=== PATIENT | female | born 1950 | race American Indian/Alaskan Native ===

== ENCOUNTER 2017-02-02 13:41 | Inpatient (IN) | payer MEDICARE, MEDICAID ==
[2017-02-02 13:56] VITALS: BMI 28.4
[2017-02-02] MEDS ORDERED: Sodium Chloride 0.9% 500 ML IV STA (14:00)
--- NOTE | 2017-02-02 14:06 | ED PDOC ---
Arrival/HPI - General Chief Complaint: Altered Mental Status Time Seen by Provider: 02/02/17 13:49 Historian: Patient - History of Present Illness Narrative History of Present Illness (Text): 02/02/17 14:05 A 66 year old female, whose past medical history includes diabetes, hypertension , CHF, COPD, CVA and ESRD with hemodialysis on //, sent into the emergency department from dialysis center for sudden onset of rigors and chills. Patients last complete dialysis treatment was 2 days ago on Tuesday. Patient was found to be hypotension in emergency room. She complains of a productive cough with yellow sputum for the past several days. Patient also notes dizziness and palpitations during dialysis, which has resolved now. Patient denies any fever, nausea, vomiting, abdominal pain, chest pain, shortness of breath or any other complaints. PMD: Dr. Caicedo Time/Duration: Prior to Arrival Symptom Course: Unchanged Quality: Other Context: Other Past Medical History - Provider Review Nursing Documentation Reviewed: Yes - Infectious Disease Hx of Infectious Diseases: None - Tetanus Immunization Tetanus Immunization: Unknown - Reproductive Menopause: No - Cardiac Hx Cardiac Disorders: Yes Hx Congestive Heart Failure: Yes Hx Hypertension: Yes Hx Pacemaker: No Hx Peripheral Edema: Yes Hx Peripheral Vascular Disease: Yes Other/Comment: b/l leg angiogram - Pulmonary Hx Respiratory Disorders: Yes Hx Chronic Obstructive Pulmonary Disease (COPD): Yes Hx Sleep Apnea: Yes Other/Comment: bipap at night - Neurological Hx Neurological Disorder: Yes (neuropathy) HX Cerebrovascular Accident: Yes Hx Dementia: Yes Other/Comment: no feeling in lle, left arm weakness, legally blind both eyes post cva 6 yrs ago - HEENT Hx HEENT Disorder: Yes Hx Blind: Yes (legally blind) - Renal Hx Renal Disorder: Yes Hx Dialysis: Yes ([facility] [place] ) Hx Renal Failure: Yes Other/Comment: left arm AV shunt - Endocrine/Metabolic Hx Endocrine Disorders: Yes Hx Diabetes Mellitus Type 1: Yes Hx Diabetes Mellitus Type 2: Yes - Hematological/Oncological Hx Blood Disorders: No - Integumentary Hx Dermatological Disorder: No - Musculoskeletal/Rheumatological Hx Musculoskeletal Disorders: No Hx Back Pain: Yes (fell in shop [id number]) Hx Falls: Yes Hx Unsteady Gait: Yes (walker) - Gastrointestinal Hx Gastrointestinal Disorders: Yes (CONSTIPATION, obese) Hx Gall Bladder Disease: Yes - Genitourinary/Gynecological Hx Genitourinary Disorders: Yes (ANURIA) - Psychiatric Hx Psychophysiologic Disorder: (SMOKE H/O) Hx Anxiety: No Hx Bipolar Disorder: No Hx Depression: No Hx Emotional Abuse: No Hx Hallucinations: No Hx Panic Disorder: No Hx Post Traumatic Stress Disorder: No Hx Psychosis: No Hx Physical Abuse: No Hx Schizophrenia: No Hx Sexual Abuse: No Hx Substance Use: No - Surgical History Hx Amputation: Yes (right pinky toe) Hx Cardiac Catheterization: Yes Hx Cholecystectomy: Yes Other/Comment: c section, r eye corneal sx - Anesthesia Hx Anesthesia: Yes Hx Anesthesia Reactions: No Hx Malignant Hyperthermia: No - Suicidal Assessment Feels Threatened In Home Enviroment: No Family/Social History - Physician Review Nursing Documentation Reviewed: Yes Family/Social History: Unknown Family HX Smoking Status: Former Smoker Hx Alcohol Use: No Hx Substance Use: No Hx Substance Use Treatment: No Allergies/Home Meds Allergies/Adverse Reactions: Allergies No Known Allergies Allergy (Verified 05/04/16 19:41) Home Medications: Home Meds Medication Instructions Recorded Confirmed Aspirin [Ecotrin] 81 mg PO DAILY 09/02/15 02/02/17 Atorvastatin [Lipitor] 10 mg PO DIN 09/02/15 02/02/17 Calcium Acetate [Phoslo] 667 mg PO TID 09/02/15 02/02/17 Famotidine [Pepcid] 20 mg PO DAILY 09/02/15 02/02/17 Gabapentin [Neurontin] 100 mg PO TID 09/02/15 02/02/17 Losartan Potassium 25 mg PO DAILY 09/02/15 02/02/17 Metoprolol Tartrate [Lopressor] 25 mg PO BID 09/02/15 02/02/17 Sevelamer [Renagel] 800 mg PO TID 09/02/15 02/02/17 cloNIDine [Catapres] 0.1 mg PO BID 09/02/15 02/02/17 Docusate Sodium [Bueno' 100 mg PO BID 05/04/16 02/02/17 Laxative] amLODIPine [Norvasc] 10 mg PO DAILY 05/04/16 02/02/17 Review of Systems - Physician Review All systems were reviewed & negative as marked: Yes - Review of Systems Constitutional: Night Sweats. absent: Fevers Respiratory: Cough, Sputum. absent: SOB Cardiovascular: Palpitations (resovled). absent: Chest Pain Gastrointestinal: absent: Abdominal Pain, Nausea, Vomiting Neurological: Dizziness (resolved) Physical Exam Vital Signs Reviewed: Yes Vital Signs Temp Pulse Resp BP Pulse Ox 02/02/17 22:04 98.9 F 84 18 138/67 96 02/02/17 19:45 85 18 125/76 96 02/02/17 16:06 99.9 F H 92 H 18 130/88 95 02/02/17 14:00 98.0 F 62 18 132/68 95 02/02/17 13:49 99.6 F 87 20 76/52 L 94 L Temperature: Afebrile Blood Pressure: Hypotensive Pulse: Regular Respiratory Rate: Normal Appearance: Positive for: Well-Appearing, Non-Toxic, Comfortable Pain Distress: None Mental Status: Positive for: Alert and Oriented X 3 - Systems Exam Head: Present: Atraumatic, Normocephalic Pupils: Present: PERRL Extroacular Muscles: Present: EOMI Conjunctiva: Present: Normal Mouth: Present: Moist Mucous Membranes Neck: Present: Normal Range of Motion Respiratory/Chest: Present: Good Air Exchange, Wheezes (Scattered expiratory wheezing, worse at bases more on right ), Rhonchi (Scattered rhonchi, worse at bases more on right ). No: Respiratory Distress, Accessory Muscle Use Cardiovascular: Present: Murmurs (systolic ejection murmur), Normal S1, S2 Abdomen: Present: Normal Bowel Sounds. No: Tenderness, Distention, Peritoneal Signs Back: Present: Normal Inspection Upper Extremity: Present: Normal ROM, NORMAL PULSES, Other (Left AV fistula with palpable thrill). No: Cyanosis, Edema Lower Extremity: Present: Edema (trace edema bilaterally), NORMAL PULSES, Normal ROM. No: CALF TENDERNESS Neurological: Present: GCS=15, CN II-XII Intact, Speech Normal Skin: Present: Warm, Dry, Normal Color. No: Rashes Psychiatric: Present: Alert, Oriented x 3, Normal Insight, Normal Concentration Medical Decision Making ED Course and Treatment: 02/02/17 14:05 Impression: A 66 year old female sent in from dialysis center for rigors and chills. Patient complains of a productive cough, and dizziness/palpitations which have resolved. Plan: -- Head CT -- Chest xray -- EKG -- Labs -- Blood and Urine culture -- Urinalysis -- IV fluids -- Reassess and disposition Progress Notes: Report Date : 02/02/2017 14:23:57 Procedure: Chest xray Dictator : Winston Moss MD IMPRESSION: Moderate vascular congestion Report Date : 02/02/2017 18:35:55 PROCEDURE: CT HEAD WITHOUT CONTRAST. Dictator : Mabel العلي MD IMPRESSION: No acute intracranial pathology identified. Extensive mucosal thickening and opacification of the ethmoid air cells and maxillary sinuses. Correlate clinically for chronic sinusitis. - Lab Interpretations Lab Results: 02/02/17 15:28 02/02/17 15:28 Lab Results 02/02/17 16:26: Lactic Acid 2.6 H 02/02/17 16:26: pO2 41, VBG pH 7.43, VBG pCO2 55.0, VBG HCO3 36.5 H, VBG Total CO2 38.2 H, VBG O2 Sat (Calc) 75.5 H, VBG Base Excess 10.1 H, VBG Potassium 5.5 H, Glucose 216 H, Lactate 2.8 H, FiO2 21.0, Sodium 137.0, Chloride 97.0 L, Venous Blood Potassium 5.5 H 02/02/17 16:26: PT 12.0, INR 1.10 H, APTT 33.6 02/02/17 16:26: Procalcitonin 0.92 H 02/02/17 15:28: Sodium 142, Potassium 4.1, Chloride 93 L, Carbon Dioxide 29, Anion Gap 24 H, BUN 19, Creatinine 4.8 H, Est GFR ( Amer) 11, Est GFR ( Non-Af Amer) 9, Random Glucose 142 H, Calcium 10.1, Phosphorus 2.5, Magnesium 2.0, Total Bilirubin 0.8, AST 51 H, ALT 40, Alkaline Phosphatase 114, Troponin I < 0.01, NT-Pro-B Natriuret Pep 9920 H, Total Protein 10.9 H, Albumin 4.7, Globulin 6.2, Albumin/Globulin Ratio 0.8 L 02/02/17 15:28: WBC 6.6 D, RBC 4.47, Hgb 13.0, Hct 40.6, MCV 90.8, MCH 29.1, MCHC 32.0, RDW 14.5, Plt Count 200, MPV 11.2 H, Gran % 59.8, Lymph % (Auto) 24.1 , [place] % (Auto) 11.5 H, Eos % (Auto) 4.3, Baso % (Auto) 0.3, Gran # 3.92, Lymph # 1.6, [place] # 0.8 H, Eos # 0.3, Baso # 0.02 I have reviewed the lab results: Yes - RAD Interpretation Radiology Orders: 02/02/17 13:59 CHEST PORTABLE [RAD] Stat 02/02/17 14:06 HEAD W/O CONTRAST [CT] Stat - Medication Orders Current Medication Orders: Discontinued Medications Sodium Chloride (Sodium Chloride 0.9%) 500 mls @ 999 mls/hr IV .Q31M STA Stop: 02/02/17 14:30 Last Admin: 02/02/17 14:15 Dose: 999 mls/hr eMAR Start Stop Document 02/02/17 14:15 KKL (Rec: 02/02/17 14:53 KKL [id number]) Intravenous Solution Start Date 02/02/17 Start Time 14:14 Vancomycin HCl (Vancomycin 1gm) 1 gm in 250 mls @ 167 mls/hr IVPB STAT STA PRN Reason: Protocol Stop: 02/02/17 15:56 Last Admin: 02/02/17 14:52 Dose: 167 mls/hr eMAR Start Stop Document 02/02/17 14:52 KKL (Rec: 02/02/17 14:52 KKL [id number]) Intravenous Solution Start Date 02/02/17 Start Time 14:52 Meropenem 1 gm/ Dextrose 100 mls @ 100 mls/hr IVPB STAT STA PRN Reason: Protocol Stop: 02/02/17 21:42 Last Admin: 02/02/17 21:10 Dose: 100 mls/hr eMAR Start Stop Document 02/02/17 21:10 IT (Rec: 02/02/17 21:11 IT [id number]) Intravenous Solution Start Date 02/02/17 Start Time 21:10 End Date 02/02/17 End time 22:10 Total Infusion Time 60 Metoprolol Tartrate (Lopressor) 2.5 mg IVP STAT STA Stop: 02/02/17 22:29 Last Admin: 02/02/17 23:08 Dose: Metoprolol Tartrate (Lopressor) 25 mg PO STAT STA Stop: 02/02/17 22:52 - Scribe Statement The provider has reviewed the documentation as recorded by the Scribjose Burton Provider Scribe Attestation: All medical record entries made by the Scribe were at my direction and personally dictated by me. I have reviewed the chart and agree that the record accurately reflects my personal performance of the history, physical exam, medical decision making, and the department course for this patient. I have also personally directed, reviewed, and agree with the discharge instructions and disposition. Disposition/Present on Arrival - Present on Arrival Any Indicators Present on Arrival: No History of DVT/PE: No History of Uncontrolled Diabetes: No Urinary Catheter: No History of Decub. Ulcer: No History Surgical Site Infection Following: None - Disposition Have Diagnosis and Disposition been Completed?: Yes Diagnosis: Hypotension Disposition: HOSPITALIZED Disposition Time: 23:13 Patient Plan: Admission Patient Problems: Current Active Problems Problem Status Onset Hypotension Acute Condition: GUARDED
--- NOTE | 2017-02-02 14:25 | RAD ---
HISTORY: Sepsis Patient COMPARISON: 05/04/2016 FINDINGS: LUNGS: No active pulmonary disease. PLEURA: No significant pleural effusion identified, no pneumothorax apparent. CARDIOVASCULAR: There is mild cardiomegaly. There is moderate vascular congestion OSSEOUS STRUCTURES: No significant abnormalities. VISUALIZED UPPER ABDOMEN: Normal. OTHER FINDINGS: None. IMPRESSION: Moderate vascular congestion
[2017-02-02] MEDS ORDERED: Vancomycin 1gm in NS 250ml 1 GM/250 ML BAG IVPB STA (14:27)
[2017-02-02 15:35] LABS: BASO # 0.02 K/mm3 (0.0-2.0); BASO % 0.3 % (0.0-3.0); EOS # 0.3 (0.0-0.7); EOS % 4.3 % (1.5-5.0); GRAN # 3.92 (1.4-6.5); GRAN % 59.8 % (50.0-68.0); HEMATOCRIT 40.6 % (36.0-48.0); LYMPH # 1.6 (1.2-3.4); LYMPH % 24.1 % (22.0-35.0); MEAN CELL VOLUME 90.8 fl (80.0-105.0); MEAN CORPUSCULAR HEMOGLOBIN 29.1 pg (25.0-35.0); MEAN PLATELET VOLUME 11.2 fl (7.0-11.0); MONO # 0.8 (0.1-0.6); MONO % 11.5 % (1.0-6.0); RED CELL DISTRIBUTION WIDTH 14.5 % (11.5-14.5); WHITE BLOOD COUNT 6.6 10^3/ul (4.5-11.0)
[2017-02-02 15:45] LABS: ALKALINE PHOSPHATASE 114 U/L (38-126); ALT/SGPT 40 U/L (7-56); AST/SGOT 51 U/L (14-36); BILIRUBIN,TOTAL 0.8 mg/dL (0.2-1.3); BLOOD UREA NITROGEN 19 mg/dL (7-21); CALCIUM 10.1 mg/dL (8.4-10.5); CARBON DIOXIDE 29 mmol/L (21-33); CHLORIDE 93 mmol/L (98-107); GFR AFRICAN-AMERICAN 11; GLUCOSE,RANDOM 142 mg/dL (70-110); PHOSPHOROUS 2.5 mg/dL (2.5-4.5); POTASSIUM 4.1 mmol/L (3.6-5.0); SODIUM 142 mmol/L (132-148); TOTAL PROTEIN 10.9 g/dL (5.8-8.3)
[2017-02-02 15:56] LABS: TROPONIN I < 0.01 ng/mL
[2017-02-02 16:13] LABS: ALB/GLOB RATIO 0.8 (1.1-1.8)
[2017-02-02 16:31] LABS: VENOUS BLOOD GAS BASE EXCESS 10.1 mmol/L (0.0-2.0); VENOUS BLOOD PH 7.43 (7.32-7.43)
[2017-02-02 16:40] LABS: INR 1.1 (0.93-1.08); PARTIAL THROMBOPLASTIN TIME 33.6 Seconds (25.1-36.5)
--- NOTE | 2017-02-02 18:37 | CT ---
PROCEDURE: CT HEAD WITHOUT CONTRAST. HISTORY: ams/momentary COMPARISON: Noncontrast head CT performed 05/04/16 TECHNIQUE: Axial computed tomography images were obtained through the head/brain without intravenous contrast. Radiation dose: Total exam DLP = 726.57 mGy-cm. This CT exam was performed using one or more of the following dose reduction techniques: Automated exposure control, adjustment of the mA and/or kV according to patient size, and/or use of iterative reconstruction technique. FINDINGS: HEMORRHAGE: No intracranial hemorrhage. BRAIN: No mass effect or edema. Intracranial atherosclerotic calcifications. The nuñez-white matter differentiation appears intact. Please note that MRI with diffusion imaging is more sensitive in the detection of acute ischemic event. VENTRICLES: No hydrocephalus. CALVARIUM: Unremarkable. PARANASAL SINUSES: Extensive mucosal thickening and opacification of the ethmoid air cells and maxillary sinuses. MASTOID AIR CELLS: Unremarkable as visualized. No inflammatory changes. OTHER FINDINGS: None. IMPRESSION: No acute intracranial pathology identified. Extensive mucosal thickening and opacification of the ethmoid air cells and maxillary sinuses. Correlate clinically for chronic sinusitis.
[2017-02-02] MEDS ORDERED: Meropenem 1 GM in Dextrose 5% In Water 100 ML IVPB STA (20:43)
[2017-02-02] MEDS ORDERED: Metoprolol 1 mg/ml Inj IVP STA (22:28)
--- NOTE | 2017-02-02 22:31 | CP.PCM.PN ---
Subjective - Date & Time of Evaluation Date of Evaluation: 02/02/17 Time of Evaluation: 22:25 - Subjective Subjective: Nurse calls and tells that her heart rate is in 130's-140's, sinus rhythm, she is asymptomatic,BP is 106/74 after one bolus of 500 cc of NS. It was 76/52. 2.6 lactic acid level, is on lopressor at home,had dialysis done today. I had ordered lopressor 2-5 mg IV . Patient had refused to have Intravenous line inserted, so I had ordered lopressor 25 mg PO which was just given. I convinced her to have IV inserted by me. Medical record was reviewed. This 66 year old woman was admitted from dialysis center for sudden onset of chills and rigor. Has PMH of HTN,CKD,HLD, gastroparesis,IDDM,peripheral neuropathy. Objective - Vital Signs/Intake and Output Vital Signs (last 24 hours): Temp Pulse Resp BP Pulse Ox 98.9 F 84 18 138/67 96 02/02/17 22:04 02/02/17 22:04 02/02/17 22:04 02/02/17 22:04 02/02/17 22:04 - Labs Labs: PT 12.0 SECONDS (9.4-12.5) 02/02/17 16:26 INR 1.10 (0.93-1.08) H 02/02/17 16:26 APTT 33.6 Seconds (25.1-36.5) 02/02/17 16:26 - Constitutional Appears: Well, No Acute Distress - Head Exam Head Exam: ATRAUMATIC, NORMAL INSPECTION, NORMOCEPHALIC - Eye Exam Additional comments: Blind in both eyes. - ENT Exam ENT Exam: Normal External Ear Exam - Neck Exam Neck Exam: Normal Inspection - Respiratory Exam Respiratory Exam: NORMAL BREATHING PATTERN - Cardiovascular Exam Cardiovascular Exam: absent: JVD - GI/Abdominal Exam GI & Abdominal Exam: absent: Distended - Rectal Exam Rectal Exam: Deferred - Exam Additional comments: Deferred. - Extremities Exam Extremities Exam: Normal Inspection - Back Exam Back Exam: NORMAL INSPECTION - Neurological Exam Neurological Exam: Alert, Awake, Oriented x3 - Psychiatric Exam Psychiatric exam: Normal Affect, Normal Mood - Skin Skin Exam: Normal Color Assessment and Plan - Assessment and Plan (Free Text) Assessment: Sinus tachycardia. CKD. Hypertension. IDDM. Blindness in both eyes. Plan: Lopressor 2-5mg was ordered which was not given because patient had refused to have intravenous line inserted. Lopressor 25 mg PO was given. Later on,I inserted # 24 angiocath in right thumb. Continue present management. If heart rate does not come down,will give other antiarrhythmic drug.
--- NOTE | 2017-02-02 23:16 | CARD ---
APPROVED REPORT EKG Measurement Heart [id number] <Conclusion> Normal sinus rhythm with sinus arrhythmia Normal ECG
[2017-02-03] MEDS ORDERED: ONDANSETRON HCL 4 MG PO SCH (09:30)
[2017-02-03 09:50] LABS: BASO # 0.04 K/mm3 (0.0-2.0); BASO % 0.6 % (0.0-3.0); EOS # 0.2 (0.0-0.7); EOS % 2.3 % (1.5-5.0); GRAN # 3.2 (1.4-6.5); GRAN % 49.4 % (50.0-68.0); HEMATOCRIT 37.7 % (36.0-48.0); LYMPH # 2.4 (1.2-3.4); LYMPH % 36.7 % (22.0-35.0); MEAN CELL VOLUME 93.5 fl (80.0-105.0); MEAN CORPUSCULAR HEMOGLOBIN 28.8 pg (25.0-35.0); MEAN CORPUSCULAR HGB CONC 30.8 g/dl (31.0-37.0); MEAN PLATELET VOLUME 10.7 fl (7.0-11.0); MONO # 0.7 (0.1-0.6); RED CELL DISTRIBUTION WIDTH 14.8 % (11.5-14.5); WHITE BLOOD COUNT 6.5 10^3/ul (4.5-11.0)
[2017-02-03 09:56] LABS: VENOUS BLOOD GAS BASE EXCESS 7.4 mmol/L (0.0-2.0); VENOUS BLOOD PH 7.37 (7.32-7.43)
[2017-02-03] MEDS: Meropenem 500 MG in Sodium Chloride 0.9% 50 ML IVPB SCH ×2 (10:20→22:20)
[2017-02-03] MEDS: Pantoprazole 20 mg EC Tab PO SCH (10:22)
--- NOTE | 2017-02-03 12:05 | CP.PCM.CON ---
History of Present Illness - History of Present Illness History of Present Illness: 66 year old female with PMH of HTN, chronic CHF, ESRD on HD Tuesday, Tuesday and Tuesday, history of CVA, history of otomastoiditis on the left, COPD, WILLIAM using BiPAP at night, lower extremity neuropathy, legally blind, S/P was [place] [facility] [place] started complaining of chills and rigors while in dialysis yesterday. She is also complaining of cough with thick sputum production since 3-4 days ago. She denies chest pain or SOB at rest, no nausea or vomiting, no dysuria, no flank pain, no abdominal pain, no diarrhea, no dysphagia, no sore throat. She states that she got her flu shot this year. In the ED, she was also noted to have low blood pressure. Infectious Diseases consult is requested to further evaluate and manage. Review of Systems - Review of Systems All systems: reviewed and no additional remarkable complaints except (as per HPI ) Past Patient History - Infectious Disease Hx of Infectious Diseases: None - Tetanus Immunizations Tetanus Immunization: Unknown - Past Social History Smoking Status: Former Smoker - CARDIAC Hx Cardiac Disorders: Yes Hx Congestive Heart Failure: Yes Hx Hypertension: Yes Hx Pacemaker: No Hx Peripheral Edema: Yes Hx Peripheral Vascular Disease: Yes Other/Comment: b/l leg angiogram - PULMONARY Hx Respiratory Disorders: Yes Hx Chronic Obstructive Pulmonary Disease (COPD): Yes Hx Sleep Apnea: Yes Other/Comment: bipap at night - NEUROLOGICAL Hx Neurological Disorder: Yes (neuropathy) HX Cerebrovascular Accident: Yes Hx Dementia: Yes Other/Comment: no feeling in lle, left arm weakness, legally blind both eyes post cva 6 yrs ago - HEENT Hx HEENT Problems: Yes Hx Blind: Yes (legally blind) - RENAL Hx Chronic Kidney Disease: Yes [place]x [place] [place] Hx Renal Failure: Yes Other/Comment: left arm AV shunt - ENDOCRINE/METABOLIC Hx Endocrine Disorders: Yes Hx Diabetes Mellitus Type 1: Yes Hx Diabetes Mellitus Type 2: Yes - HEMATOLOGICAL/ONCOLOGICAL Hx Blood Disorders: No - INTEGUMENTARY Hx Dermatological Problems: No - MUSCULOSKELETAL/RHEUMATOLOGICAL Hx Musculoskeletal Disorders: No Hx Back Pain: Yes (fell in shop 2012) Hx Falls: Yes Hx Unsteady Gait: Yes (walker) - GASTROINTESTINAL Hx Gastrointestinal Disorders: Yes (CONSTIPATION, obese) Hx Gall Bladder Disease: Yes - GENITOURINARY/GYNECOLOGICAL Hx Genitourinary Disorders: Yes (ANURIA) - PSYCHIATRIC Hx Psychophysiologic Disorder: (SMOKE H/O) Hx Anxiety: No Hx Bipolar Disorder: No Hx Depression: No Hx Emotional Abuse: No Hx Hallucinations: No Hx Panic Symptoms: No Hx Post Traumatic Stress Disorder: No Hx Psychosis: No Hx Physical Abuse: No Hx Schizophrenia: No Hx Sexual Abuse: No Hx Substance Use: No - SURGICAL HISTORY Hx Amputation: Yes (right pinky toe) Hx Cardiac Catheterization: Yes Hx Cholecystectomy: Yes Other/Comment: c section, r eye corneal sx - ANESTHESIA Hx Anesthesia: Yes Hx Anesthesia Reactions: No Hx Malignant Hyperthermia: No Meds Allergies/Adverse Reactions: Allergies Allergy/AdvReac Type Severity Reaction Status Date / Time No Known Allergies Allergy Verified 05/04/16 19:41 - Medications Medications: Current Medications Amlodipine Besylate (Norvasc) 10 mg PO DAILY ANTHONY Aspirin (Ecotrin) 81 mg PO DAILY ANTHONY Atorvastatin Calcium (Lipitor) 10 mg PO DIN ANTHONY Calcium Acetate (Phoslo) 667 mg PO TID ANTHONY Docusate Sodium (Colace) 100 mg PO BID ANTHONY Famotidine (Pepcid) 20 mg PO DAILY ANTHONY Gabapentin (Neurontin) 100 mg PO TID ANTHONY PRN Reason: Protocol Meropenem 500 mg/ Sodium (Chloride) 50 mls @ 100 mls/hr IVPB Q12 ANTHONY PRN Reason: Protocol Stop: 02/03/17 10:29 Losartan Potassium (Cozaar) 25 mg PO DAILY [facility] Metoclopramide HCl (Reglan) 5 mg PO ACHS [facility] Metoprolol Tartrate (Lopressor) 12.5 mg PO BID ANTHONY Pantoprazole Sodium (Protonix Ec Tab) 20 mg PO DAILY ANTHONY Sevelamer HCl (Renagel) 800 mg PO TID [facility] Physical Exam - Constitutional Appears: Non-toxic - ENT Exam ENT Exam: Mucous Membranes Moist - Neck Exam Neck exam: Negative for: Lymphadenopathy, Meningismus - Respiratory Exam Respiratory Exam: Decreased Breath Sounds - Cardiovascular Exam Cardiovascular Exam: +S1, +S2 - GI/Abdominal Exam GI & Abdominal Exam: Soft. absent: Tenderness - Extremities Exam Additional comments: left upper arm AV fistula with good bruit and thrill Results - Vital Signs Recent Vital Signs: Last Vital Signs Temp 99.7 F H 02/03/17 06:00 Pulse 59 L 02/03/17 06:00 Resp 19 02/03/17 06:00 BP 103/65 02/03/17 06:00 Pulse Ox 98 02/03/17 06:00 - Labs Result Diagrams: 02/03/17 09:30 02/02/17 15:28 Labs: Laboratory Results - last 24 hr 02/03/17 02/03/17 01:01 07:14 POC Glucose (mg/dL) 204 H 131 H Assessment & Plan - Assessment and Plan (Free Text) Plan: Assessment Low grade fever with chills R/O sepsis R/O HCAP HTN chronic CHF ESRD on HD Tuesday, Tuesday and Tuesday history of CVA history of otomastoiditis on the left COPD WILLIAM using BiPAP at night lower extremity neuropathy legally blind S/P Plan Started the patient on Merrem and gave a dose of IV Vancomycin pending blood cx , urine cx, PCT; reviewed CXR which showed probable pulmonary congestion will monitor clinically
--- NOTE | 2017-02-03 14:54 | CP.PCM.CON ---
History of Present Illness - History of Present Illness History of Present Illness: Initial Nephrology Consultation: Assessment: Stable Fever ? sepsis. Dehydration as evident by hemoconcentration. lactic acidosis, hypotension Diabetic chronic Kidney Disease (E11.22) Hypertensive Chronic Kidney Disease (I12.0) End stage renal disease (N18.6) dependence on hemodialysis (Z99.2) (MWF) via AVF Anemia (D64.9), Hyperphosphatemia (E83.39), Secondary Hyperparathyroidism (E21.1 ), HTN (I12.0) chronic Hep C Plan: No acute need for dialysis today. Will plan for dialysis tomorrow. Continue with Nephrovite 1 tab/day. PRBC as needed for anemia. On JERRICA as weekly aransep Continue with phos binders home dose, d/c phoslo BP control with meds as ordered. Patient on RAAS catracho as losartan. hold BP meds if BP <100/50 Glycemic control, Dialysis consistent diet Further work up/management as per primary team Dose meds/antibiotics for ESRD status. Avoid fleets enema/magnesium based laxatives ID following. Thanks for allowing me to participate in care of your patient. Will follow patient with you. Please call if any Qs. d/w team Dr Yuriy Sepulveda Office: [phone] Chief Complaint; I got sick HPI: Pt is a 66 F with hx of ESRD on hemodialysis (MWF) via AVF, last dialysis yesteday, chronic anemia, hyperphosphatemia, secondary hyperparathyroidism, Diabetes Mellitus, hypertension, chronic Hep C, legally blind, neuropathy presented with complaints of feeling sick and had low grade fever during HD with low BP hence sent to ER she was given as Rx for levaquin when seen in dialysis unit on tuesday for possible acute bronchitis. She feels better now Denies chest pain, palpitation, shortness of breath, leg swelling sore throat and cough has resolved ROS: Constitutional Symptoms: c/o fever but better now. No chills. No Recent Weight Changes Eyes: denies change in vision, denies watery eyes, denies double vision Ears/Nose/Mouth/Throat: Denies Abnormal Taste. No Bad breath or Bad Taste. Cardiovascular: No chest pain. No palpitations. Pulmonary: No shortness of breath no cough. Gastrointestinal: denies abdominal pain No nausea. No vomiting. Denies change in bowel habits. Denies Bleeding Genitourinary: makes small urine. No associated pain or blood. Neurological: Denies headaches. No dizziness. Denies loss of balance. Denies weakness, denies tingling/numbness Dermatological: No Rash or Bruising or ulcers. Psychiatric: Denies Anxiety. No depression. Denies hallucinations. Rheumatological: No joint pain. Denies Joint swelling Endocrine: Denies over tiredness. Denies Fatigue and denies Heat/Cold Intolerance. All other negative. Physical Examination: General Appearance: Comfortable, in no acute respiratory distress, co-operative . Vitals reviewed and noted as below Head; Atraumatic, normocephalic ENT: no ulcers no thrush. Tongue is midline. Oropharynx: no rash or ulcers. EYES: she is blind Neck; supple no lymphadenopathy, no thyromegaly or bruit Lungs: Normal respiratory rate/effort. Breath sounds bilateral equal and clear Heart: Normal rate. s1s2 normal. No rub or gallop. Extremities: no edema. No varicose veins Neurological: Patient is alert, awake and oriented to person, place and time. No focal deficit. Strength bilateral appropriate and equal Skin: Warm and dry. Normal turgor. No rash. Palpitation: Normal elasticity for age Abdomen: Abdomen is soft. Bowel sounds +. There is no abdominal tenderness, no guarding/rigidity or organomegaly Psych: normal insight and normal affect/mood MSK: no joint tenderness or swelling. Digits and nails normal, no deformity : kidney or bladder not palpable Access: AVF LUE with thrill and bruit Labs/imaging reviewed. Past medical history, past surgical history, family history, social history, allergy reviewed and noted as below Family Hx: no hx of CKD. Non contributory Past Patient History - Infectious Disease Hx of Infectious Diseases: None - Tetanus Immunizations Tetanus Immunization: Unknown - Past Social History Smoking Status: Former Smoker - CARDIAC Hx Cardiac Disorders: Yes Hx Congestive Heart Failure: Yes Hx Hypertension: Yes Hx Pacemaker: No Hx Peripheral Edema: Yes Hx Peripheral Vascular Disease: Yes Other/Comment: b/l leg angiogram - PULMONARY Hx Respiratory Disorders: Yes Hx Chronic Obstructive Pulmonary Disease (COPD): Yes Hx Sleep Apnea: Yes Other/Comment: bipap at night - NEUROLOGICAL Hx Neurological Disorder: Yes (neuropathy) HX Cerebrovascular Accident: Yes Hx Dementia: Yes Other/Comment: no feeling in lle, left arm weakness, legally blind both eyes post cva 6 yrs ago - HEENT Hx HEENT Problems: Yes Hx Blind: Yes (legally blind) - RENAL Hx Chronic Kidney Disease: Yes Hx Dialysis: Yes ([facility]) Hx Renal Failure: Yes Other/Comment: left arm AV shunt - ENDOCRINE/METABOLIC Hx Endocrine Disorders: Yes Hx Diabetes Mellitus Type 1: Yes Hx Diabetes Mellitus Type 2: Yes - HEMATOLOGICAL/ONCOLOGICAL Hx Blood Disorders: No - INTEGUMENTARY Hx Dermatological Problems: No - MUSCULOSKELETAL/RHEUMATOLOGICAL Hx Musculoskeletal Disorders: No Hx Back Pain: Yes (fell in shop [id number]) Hx Falls: Yes Hx Unsteady Gait: Yes (walker) - GASTROINTESTINAL Hx Gastrointestinal Disorders: Yes (CONSTIPATION, obese) Hx Gall Bladder Disease: Yes - GENITOURINARY/GYNECOLOGICAL Hx Genitourinary Disorders: Yes (ANURIA) - PSYCHIATRIC Hx Psychophysiologic Disorder: (SMOKE H/O) Hx Anxiety: No Hx Bipolar Disorder: No Hx Depression: No Hx Emotional Abuse: No Hx Hallucinations: No Hx Panic Symptoms: No Hx Post Traumatic Stress Disorder: No Hx Psychosis: No Hx Physical Abuse: No Hx Schizophrenia: No Hx Sexual Abuse: No Hx Substance Use: No - SURGICAL HISTORY Hx Amputation: Yes (right pinky toe) Hx Cardiac Catheterization: Yes Hx Cholecystectomy: Yes Other/Comment: c section, r eye corneal sx - ANESTHESIA Hx Anesthesia: Yes Hx Anesthesia Reactions: No Hx Malignant Hyperthermia: No Meds Allergies/Adverse Reactions: Allergies Allergy/AdvReac Type Severity Reaction Status Date / Time No Known Allergies Allergy Verified 05/04/16 19:41 - Medications Medications: Current Medications Amlodipine Besylate (Norvasc) 10 mg PO DAILY [facility] Last Admin: 02/03/17 10:21 Dose: 10 mg Aspirin (Ecotrin) 81 mg PO DAILY [facility] Last Admin: 02/03/17 10:22 Dose: 81 mg Atorvastatin Calcium (Lipitor) 10 mg PO DIN [facility] Docusate Sodium (Colace) 100 mg PO BID [facility] Last Admin: 02/03/17 10:18 Dose: 100 mg Famotidine (Pepcid) 20 mg PO DAILY [facility] Last Admin: 02/03/17 10:22 Dose: 20 mg Gabapentin (Neurontin) 100 mg PO TID [facility] PRN Reason: Protocol Last Admin: 02/03/17 14:45 Dose: 100 mg Meropenem 500 mg/ Sodium (Chloride) 50 mls @ 100 mls/hr IVPB Q12 [facility] PRN Reason: Protocol Stop: 02/10/17 10:01 Last Admin: 02/03/17 10:20 Dose: 100 mls/hr Losartan Potassium (Cozaar) 25 mg PO DAILY [facility] Metoclopramide HCl (Reglan) 5 mg PO ACHS [facility] Last Admin: 02/03/17 10:40 Dose: 5 mg Metoprolol Tartrate (Lopressor) 12.5 mg PO BID [facility] Last Admin: 02/03/17 10:21 Dose: 12.5 mg Pantoprazole Sodium (Protonix Ec Tab) 20 mg PO DAILY [facility] Last Admin: 02/03/17 10:22 Dose: 20 mg Sevelamer HCl (Renagel) 800 mg PO TID [facility] Last Admin: 02/03/17 14:45 Dose: 800 mg Vitamin B Complex/Vit C/Folic Acid (Nephro-Marcial) 1 tab PO 0800 [facility] Results - Vital Signs Recent Vital Signs: Last Vital Signs Temp 98.1 F 02/03/17 12:00 Pulse 56 L 02/03/17 12:00 Resp 18 02/03/17 12:00 BP 104/54 L 02/03/17 12:00 Pulse Ox 98 02/03/17 06:00 - Labs Result Diagrams: 02/03/17 09:30 02/02/17 15:28
--- NOTE | 2017-02-03 18:59 | CON ---
DATE: 02/03/2017 LOCATION: The patient is in room 275, bed 1. REASON FOR CONSULTATION: Hypotension, renal failure, history of hypertension, and diabetes. HISTORY OF PRESENT ILLNESS: The patient is a 66-year-old female, known case of renal failure on dialysis Tuesday, Tuesday, and Tuesday, history of hypertension, diabetes mellitus, COPD, obstructive sleep apnea on BiPAP at night, peripheral vascular disease, legally blind, neuropathy, high cholesterol, and obesity, admitted with history that she was on dialysis yesterday. While on dialysis, she got rigors and chills and the patient's blood pressure fell down to 76/52. The patient also has history of cough with thick expectoration for the last 3 to 4 days. She also had low-grade fever. The patient denied any chest pain or palpitation at that point. The patient now lying in bed without any chest pain or palpitation, but still continued to have cough and expectoration. The patient not in any respiratory distress. PAST MEDICAL HISTORY: Positive for renal failure on dialysis three times a week, hypertension, diabetes, peripheral vascular disease, legally blind, COPD, sleep apnea on BiPAP at night, neuropathy, high cholesterol, obesity, old CVA, and also the patient had two C-sections. PERSONAL HISTORY: The patient is an ex-smoker. Denies drinking. ALLERGIES: THE PATIENT DENIES ANY ALLERGIES. HOME MEDICATIONS: Included Norvasc 10 mg daily, aspirin 81 mg daily, Lipitor 10 mg daily, PhosLo 667 mg p.o. t.i.d., Pepcid 20 mg p.o. daily, gabapentin 100 mg p.o. t.i.d., Cozaar 25 mg daily, Reglan 5 mg p.o. before meals and at bedtime, Lopressor 12.5 mg p.o. b.i.d., Protonix 20 mg p.o. daily, and Renagel 800 mg p.o. t.i.d. REVIEW OF SYSTEMS: All the systems reviewed, positive mentioned in history, otherwise, negative. PHYSICAL EXAMINATION: VITAL SIGNS: Blood pressure 138/67, respirations 18, pulse 84, and temperature 98.9. HEENT: Head: Normocephalic. Eyes: Conjunctivae normal. NECK: JVP low. Carotid equal. THORAX: AP diameter normal. LUNGS: No significant rales. CARDIOVASCULAR: S1 and S2. ABDOMEN: Soft. No tenderness. No organomegaly. EXTREMITIES: No clubbing. No cyanosis. LABORATORY DATA: WBC 6.5, hemoglobin 11.6, hematocrit 37.7, and platelets 180. Sugar random 175. Sodium 142, potassium 4.1, BUN 19, creatinine 4.8, random glucose 142, phosphorus 2.5, magnesium 2.0, total bilirubin 0.8, AST 51, and ALT 40. Troponin less than 0.01. [id number] natriuretic peptide 9920. Chest x-ray mild vascular congestion. EKG showed normal sinus rhythm with PAC. CT scan of the head, mucosal thickening and opacification of the ethmoid air cells and maxillary sinuses, no acute intracranial pathology. DIAGNOSES: Hypotensive episode probably related to sepsis, respiratory tract infection, otomastoiditis on the left, renal failure, dialysis, hypertension, diabetes mellitus, peripheral vascular disease, legally blind, chronic obstructive pulmonary disease, sleep apnea on BiPAP at night, neuropathy, high cholesterol, obesity, and congestive heart failure, probably fluid overload, rule out left ventricular systolic dysfunction. PLAN: Since the blood pressure is stable now, we can restart metoprolol 12.5 p.o. b.i.d., which the patient was taking before. Also continue dialysis to help out the mild congestive heart failure. I will do an echocardiogram to evaluate LV function. Last echocardiogram was done on 12/03/2014, which showed normal size LV, mild LV hypertrophy with normal LV ejection fraction of 55%-60%, trace MR, trace TR, and trace . The patient is already on losartan 25 mg p.o. daily, aspirin 81 mg daily, Lipitor 10 mg daily, metoprolol 12.5 b.i.d., Merrem IV 500 mg q.12 hours, Neurontin 100 mg t.i.d., amlodipine 10 mg daily, Reglan 5 mg p.o. before meals and at bedtime, and Renagel 800 mg p.o. t.i.d. We will follow with you. Florin Monterroso MD
[2017-02-04] MEDS ORDERED: DiphenhydrAMINE 50 mg/ml Inj IVP ONE (06:38)
[2017-02-04] MEDS ORDERED: DiphenhydrAMINE 50 mg/ml Inj ONE (06:42)
[2017-02-04] MEDS ORDERED: Doxercalciferol 4 mcg/2 ml Inj IVP ONE (06:43)
[2017-02-04 06:56] LABS: BASO # 0.02 K/mm3 (0.0-2.0); BASO % 0.3 % (0.0-3.0); EOS # 0.3 (0.0-0.7); EOS % 4.2 % (1.5-5.0); GRAN # 3.5 (1.4-6.5); HEMATOCRIT 34.8 % (36.0-48.0); LYMPH # 1.9 (1.2-3.4); LYMPH % 30.4 % (22.0-35.0); MEAN CELL VOLUME 89.9 fl (80.0-105.0); MEAN CORPUSCULAR HEMOGLOBIN 28.2 pg (25.0-35.0); MEAN CORPUSCULAR HGB CONC 31.3 g/dl (31.0-37.0); MEAN PLATELET VOLUME 10.7 fl (7.0-11.0); MONO # 0.5 (0.1-0.6); MONO % 8.1 % (1.0-6.0); RED CELL DISTRIBUTION WIDTH 14.3 % (11.5-14.5); WHITE BLOOD COUNT 6.2 10^3/ul (4.5-11.0)
[2017-02-04 08:55] LABS: ALB/GLOB RATIO 0.9 (1.1-1.8); BILIRUBIN,TOTAL 0.9 mg/dL (0.2-1.3); MAGNESIUM 2.2 mg/dL (1.7-2.2); PHOSPHOROUS 5.9 mg/dL (2.5-4.5); TOTAL PROTEIN 8.1 g/dL (5.8-8.3)
[2017-02-04] MEDS: Pantoprazole 20 mg EC Tab PO SCH (13:26)
[2017-02-04] MEDS: Meropenem 500 MG in Sodium Chloride 0.9% 50 ML IVPB SCH ×2 (13:26→21:45)
[2017-02-04] MEDS: Multivitamin Vitamin B Complex (Nephro-Vite) Tab PO SCH (13:26)
--- NOTE | 2017-02-04 16:20 | CP.PCM.PN ---
Subjective - Date & Time of Evaluation Date of Evaluation: 02/04/17 Time of Evaluation: 16:19 - Subjective Subjective: Nephrology Consultation: Assessment: Stable Fever ? sepsis. Dehydration as evident by hemoconcentration. lactic acidosis, hypotension, Hyperkalemia Diabetic chronic Kidney Disease (E11.22) Hypertensive Chronic Kidney Disease (I12.0) End stage renal disease (N18.6) dependence on hemodialysis (Z99.2) (MWF) via AVF Anemia (D64.9), Hyperphosphatemia (E83.39), Secondary Hyperparathyroidism (E21.1 ), HTN (I12.0) chronic Hep C Plan: had dialysis today. Continue with Nephrovite 1 tab/day. PRBC as needed for anemia. On JERRICA as weekly aransep Continue with phos binders home dose (increased to 1600 TID), d/c phoslo BP control with meds as ordered. Patient on RAAS catracho as losartan. hold BP meds if BP <110/50 Glycemic control, Dialysis consistent diet Further work up/management as per primary team Dose meds/antibiotics for ESRD status. Avoid fleets enema/magnesium based laxatives ID following. Thanks for allowing me to participate in care of your patient. Will follow patient with you. Please call if any Qs. Dr Yuriy Sepulveda Office: [phone] Chief Complaint; I feel better HPI: Pt is a 66 F with hx of ESRD on hemodialysis (MWF) via AVF, last dialysis yesteday, chronic anemia, hyperphosphatemia, secondary hyperparathyroidism, Diabetes Mellitus, hypertension, chronic Hep C, legally blind, neuropathy presented with complaints of feeling sick and had low grade fever during HD with low BP hence sent to ER she was given as Rx for levaquin when seen in dialysis unit on tuesday for possible acute bronchitis. She feels better now Denies chest pain, palpitation, shortness of breath, leg swelling sore throat and cough has improved Physical Examination: General Appearance: Comfortable, in no acute respiratory distress, co-operative . Vitals reviewed and noted as below Head; Atraumatic, normocephalic ENT: no ulcers no thrush. Tongue is midline. Oropharynx: no rash or ulcers. EYES: she is blind Neck; supple no lymphadenopathy, no thyromegaly or bruit Lungs: Normal respiratory rate/effort. Breath sounds bilateral equal and has few wheeze Heart: Normal rate. s1s2 normal. No rub or gallop. Extremities: no edema. No varicose veins Neurological: Patient is alert, awake and oriented to person, place and time. No focal deficit. Strength bilateral appropriate and equal Skin: Warm and dry. Normal turgor. No rash. Palpitation: Normal elasticity for age Abdomen: Abdomen is soft. Bowel sounds +. There is no abdominal tenderness, no guarding/rigidity or organomegaly Psych: normal insight and normal affect/mood MSK: no joint tenderness or swelling. Digits and nails normal, no deformity : kidney or bladder not palpable Access: AVF LUE with thrill and bruit Labs/imaging reviewed. Past medical history, past surgical history, family history, social history, allergy reviewed and noted as below Family Hx: no hx of CKD. Non contributory Objective - Vital Signs/Intake and Output Vital Signs (last 24 hours): Temp Pulse Resp BP Pulse Ox 98.0 F 70 19 90/60 L 100 02/04/17 06:00 02/04/17 06:00 02/04/17 06:00 02/04/17 13:27 02/04/17 06:00 Intake and Output: 02/04/17 02/04/17 06:59 18:59 Intake Total 80 Output Total 0 Balance 80 - Medications Medications: Current Medications Amlodipine Besylate (Norvasc) 10 mg PO DAILY [facility] Aspirin (Ecotrin) 81 mg PO DAILY [facility] Last Admin: 02/04/17 13:26 Dose: 81 mg Atorvastatin Calcium (Lipitor) 10 mg PO DIN [facility] Last Admin: 02/03/17 17:50 Dose: 10 mg Docusate Sodium (Colace) 100 mg PO BID [facility] Last Admin: 02/04/17 13:25 Dose: 100 mg Doxycycline Hyclate (Doryx) 100 mg PO Q12 [facility] PRN Reason: Protocol Last Admin: 02/04/17 13:26 Dose: 100 mg Famotidine (Pepcid) 20 mg PO DAILY [facility] Last Admin: 02/04/17 13:26 Dose: 20 mg Gabapentin (Neurontin) 100 mg PO TID [facility] PRN Reason: Protocol Last Admin: 02/04/17 13:24 Dose: 100 mg Meropenem 500 mg/ Sodium (Chloride) 50 mls @ 100 mls/hr IVPB Q12 [facility] PRN Reason: Protocol Stop: 02/10/17 10:01 Last Admin: 02/04/17 13:26 Dose: 100 mls/hr Losartan Potassium (Cozaar) 25 mg PO DAILY [facility] Last Admin: 02/04/17 13:27 Dose: Not Given Metoclopramide HCl (Reglan) 5 mg PO ACHS [facility] Last Admin: 02/04/17 11:30 Dose: Not Given Metoprolol Tartrate (Lopressor) 12.5 mg PO BID [facility] Last Admin: 02/04/17 10:00 Dose: Not Given Pantoprazole Sodium (Protonix Ec Tab) 20 mg PO DAILY [facility] Last Admin: 02/04/17 13:26 Dose: 20 mg Sevelamer HCl (Renagel) 1,600 mg PO TID [facility] Last Admin: 02/04/17 13:25 Dose: 1,600 mg Vitamin B Complex/Vit C/Folic Acid (Nephro-Marcial) 1 tab PO 0800 [facility] Last Admin: 02/04/17 13:26 Dose: 1 tab - Labs Labs: 02/04/17 06:33 02/04/17 06:33 PT 12.0 SECONDS (9.4-12.5) 02/02/17 16:26 INR 1.10 (0.93-1.08) H 02/02/17 16:26 APTT 33.6 Seconds (25.1-36.5) 02/02/17 16:26
--- NOTE | 2017-02-04 17:41 | CARD ---
APPROVED REPORT EXAM: Two-dimensional and M-mode echocardiogram with Doppler and color Doppler. INDICATION LV Function:SystolicDiastolic Congestive Heart Failure COPD 2D DIMENSIONS Left Atrium (2D)4.0 (1.6-4.0cm)IVSd1.5 (0.7-1.1cm) LVDd4.5 (3.9-5.9cm)PWd1.3 (0.7-1.1cm) LVDs2.8 (2.5-4.0cm)FS (%) 37.5 % LVEF (%)67.8 (>50%) M-Mode DIMENSIONS Aortic Root2.80 (2.2-3.7cm)Aortic Cusp Exc.2.00 (1.5-2.0cm) Aortic Valve AoV Peak Pnrtqjox510.0cm/Colby Peak GR.10mmHg Mitral Valve MV E Yjgmfske65.6cm/sMV A Sgubkgmf87.0cm/sE/A ratio1.0 TDI E/Lateral E'0.0E/Medial E'0.0 Tricuspid Valve TR Peak Tpjnahkd834mm/sRAP [id number] Peak Gr.10mmHg [id number] LEFT VENTRICLE The left ventricle is normal size. There is mild concentric left ventricular hypertrophy. The left ventricular function is normal.EF-65% There is normal LV segmental wall motion. Transmitral Doppler flow pattern is Grade III-reversible restrictive diastolic dysfunction. No left ventricle thrombus noted on this study. There is no ventricular septal defect visualized. There is no left ventricular aneurysm. There is no mass noted in the left ventricle. RIGHT VENTRICLE The right ventricle is normal size. There is normal right ventricular wall thickness. The right ventricular systolic function is normal. ATRIA The left atrium is mildly dilated. The right atrium size is normal. The interatrial septum is intact with no evidence for an atrial septal defect. AORTIC VALVE The aortic valve is calcified but opens well. The aortic valve is mildly to moderately sclerotic. There is trace aortic regurgitation. There is no aortic valvular stenosis. There is no aortic valvular vegetation. MITRAL VALVE The mitral valve is calcified but opens well. Mitral annular calcification is moderate. Mitral regurgitation is trace. There is no mitral valve stenosis. There is no evidence of mitral valve prolapse. TRICUSPID VALVE The tricuspid valve leaflets are thickened , but open well. There is trace to mild tricuspid regurgitation.RVSP-20 mmof Hg. There is no tricuspid valve stenosis. There is no tricuspid valve prolapse or vegetation. PULMONIC VALVE The pulmonic valve is borderline thickened. There is trace pulmonic valvular regurgitation. There is no pulmonic valvular stenosis. GREAT VESSELS The aortic root is normal in size. The ascending aorta is normal in size. The pulmonary artery is normal. The IVC is normal in size and collapses >50% with inspiration. PERICARDIAL EFFUSION There is no pleural effusion. There is no pericardial effusion. <Conclusion> The left ventricle is normal size. There is mild concentric left ventricular hypertrophy. The left ventricular function is normal.EF-65% There is trace aortic regurgitation. Mitral regurgitation is trace. There is trace to mild tricuspid regurgitation.RVSP-20 mmof hg. There is trace pulmonic valvular regurgitation. The IVC is normal in size and collapses >50% with inspiration. There is no pericardial effusion.
--- NOTE | 2017-02-04 19:39 | CP.PCM.PN ---
Subjective - Date & Time of Evaluation Date of Evaluation: 02/04/17 Time of Evaluation: 10:10 - Subjective Subjective: Comfortable, cough is a little less, no fevers overnight. Objective - Vital Signs/Intake and Output Vital Signs (last 24 hours): Temp Pulse Resp BP Pulse Ox 98.0 F 70 19 132/66 100 02/04/17 06:00 02/04/17 06:00 02/04/17 06:00 02/04/17 06:00 02/04/17 06:00 Intake and Output: 02/03/17 02/04/17 18:59 06:59 Intake Total 420 80 Output Total 0 0 Balance 420 80 - Medications Medications: Current Medications Amlodipine Besylate (Norvasc) 10 mg PO DAILY [facility] Last Admin: 02/03/17 10:21 Dose: 10 mg Aspirin (Ecotrin) 81 mg PO DAILY [facility] Last Admin: 02/03/17 10:22 Dose: 81 mg Atorvastatin Calcium (Lipitor) 10 mg PO DIN [facility] Last Admin: 02/03/17 17:50 Dose: 10 mg Docusate Sodium (Colace) 100 mg PO BID [facility] Last Admin: 02/03/17 17:50 Dose: 100 mg Famotidine (Pepcid) 20 mg PO DAILY [facility] Last Admin: 02/03/17 10:22 Dose: 20 mg Gabapentin (Neurontin) 100 mg PO TID [facility] PRN Reason: Protocol Last Admin: 02/03/17 17:50 Dose: 100 mg Meropenem 500 mg/ Sodium (Chloride) 50 mls @ 100 mls/hr IVPB Q12 [facility] PRN Reason: Protocol Stop: 02/10/17 10:01 Last Admin: 02/03/17 22:20 Dose: 100 mls/hr Losartan Potassium (Cozaar) 25 mg PO DAILY [facility] Metoclopramide HCl (Reglan) 5 mg PO ACHS [facility] Last Admin: 02/03/17 22:20 Dose: 5 mg Metoprolol Tartrate (Lopressor) 12.5 mg PO BID [facility] Last Admin: 02/03/17 17:50 Dose: 12.5 mg Pantoprazole Sodium (Protonix Ec Tab) 20 mg PO DAILY [facility] Last Admin: 02/03/17 10:22 Dose: 20 mg Sevelamer HCl (Renagel) 800 mg PO TID [facility] Last Admin: 02/03/17 17:50 Dose: 800 mg Vitamin B Complex/Vit C/Folic Acid (Nephro-Marcial) 1 tab PO 0800 [facility] - Labs Labs: PT 12.0 SECONDS (9.4-12.5) 02/02/17 16:26 INR 1.10 (0.93-1.08) H 02/02/17 16:26 APTT 33.6 Seconds (25.1-36.5) 02/02/17 16:26 - Constitutional Appears: Non-toxic - Head Exam Head Exam: NORMAL INSPECTION - Neck Exam Neck Exam: absent: Meningismus - Respiratory Exam Respiratory Exam: Decreased Breath Sounds - Cardiovascular Exam Cardiovascular Exam: +S1, +S2 - GI/Abdominal Exam GI & Abdominal Exam: Soft. absent: Tenderness Assessment and Plan - Assessment and Plan (Free Text) Plan: Assessment Low grade fever with chills R/O sepsis R/O HCAP HTN chronic CHF ESRD on HD Tuesday, Tuesday and Tuesday history of CVA history of otomastoiditis on the left COPD WILLIAM using BiPAP at night lower extremity neuropathy legally blind S/P Plan continue Doxycycline and Merrem day 2 and gave a dose of IV Vancomycin; blood cx are negative; PCT is elevated but patient has renal failure; reviewed CXR which showed probable pulmonary congestion will continue to monitor clinically
--- NOTE | 2017-02-04 21:38 | PN ---
DATE: 02/04/2017 REASON FOR CONSULTATION AND FOLLOWUP: Hypotension, renal failure, end stage renal disease, on dialysis, history of hypertension, and diabetes. SUBJECTIVE: The patient denies any chest pain, shortness of breath or any palpitation, seen in the dialysis unit, having dialysis. PHYSICAL EXAMINATION: GENERAL: Not in distress. VITAL SIGNS: As follows; temperature afebrile, heart rate 70, and blood pressure 90/60. HEENT: PERRLA. Extraocular muscles intact. NECK: Supple. No carotid bruits or thyromegaly. CHEST: Clear to auscultation. HEART: S1 and S2, regular. ABDOMEN: Soft. EXTREMITIES: Clubbing and cyanosis negative. LABORATORY DATA: WBC 6.2, hemoglobin 10.9, hematocrit 34.8, and platelet count 163. Chemistry shows sodium 136, potassium 6, chloride 94, carbon dioxide of 26, anion gap of 22, BUN 66, and creatinine 12. IMPRESSION: Pre-dialysis, labs are abnormal, hypotension during the dialysis. Pre-dialysis blood pressure is 133/80. End stage renal disease, on dialysis Tuesday, Tuesday, and Tuesday, obesity, obstructive sleep apnea, diabetes, legally blind, hypertension, hyperlipidemia, and obesity. RECOMMENDATIONS: Last echo shows ejection fraction of 60%, trace MR, trace TR. We will get recent echo to assess LV function. Avoid antihypertensive medication pre-dialysis and give the day after the dialysis. We will put losartan on Tuesday, , Tuesday, and Tuesday. Avoid pre-dialysis medication and immediate post-dialysis as if you have a pressure, it drops the blood pressure. We will hold losartan 25 mg daily. We are holding by 120 or less than 120 and avoid pre-dialysis. We will follow with you. We will follow the echo. Thank you Dr. Caicedo for providing us the opportunity in taking care of the patient, Joe Harris. Florin Lynn MD
[2017-02-05 06:13] VITALS: O2SAT 97
[2017-02-05] MEDS: Multivitamin Vitamin B Complex (Nephro-Vite) Tab PO SCH (10:03)
[2017-02-05] MEDS: Meropenem 500 MG in Sodium Chloride 0.9% 50 ML IVPB SCH (10:03)
[2017-02-05] MEDS: Pantoprazole 20 mg EC Tab PO SCH (10:05)
[2017-02-05 12:14] VITALS: RESP 20; TEMP 98.4
[2017-02-05 12:16] VITALS: BP 137/69; PULSE 80
--- NOTE | 2017-02-05 17:36 | PN ---
DATE OF SERVICE: 02/05/2017 SUBJECTIVE: The patient was seen in room #275, bed #1 early this morning. No fever and no chills. No nausea. No vomiting. OBJECTIVE: VITAL SIGNS: On exam, temperature is 98, blood pressure is 130/70, respiratory rate of 20, heart rate of 72. HEENT: Unremarkable. NECK: Supple. LUNGS: Have decreased breath sounds. HEART: Normal S1 and S2. ABDOMEN: Soft. LABORATORY DATA: Examination reveals a white count of 6.2, hemoglobin of 10, platelets of 163. Chemistries reveal a BUN of 66, creatinine of 12. Serology is noted. Microbiology reveals the blood cultures are negative. ASSESSMENT AND PLAN: This is a 66-year-old female who was seen early this morning in room #275, bed #1, with low-grade fever and chills, must rule out sepsis, healthcare associated pneumonia with hypertension, chronic congestive heart failure, end-stage renal disease, on hemodialysis, day #3 on meropenem and doxycycline with microbiology reveals negative blood cultures, negative influenza, and elevated procalcitonin; however, the patient is a dialysis patient. Renato Scott MD
--- NOTE | 2017-02-06 00:56 | PN ---
DATE: 02/04/2017 SUBJECTIVE: The patient is stable and comfortable, in no distress. No nausea. No vomiting. Currently on meropenem and doxycycline. She has no chest pain. No short of breath. She has a little bit of cough, otherwise no short of breath and no other complaints. She feels better. She is stable hemodynamically. PHYSICAL EXAMINATION VITAL SIGNS: On 02/04/2017 her vital signs are as follow: Temperature is 98.3, heart rate 80, blood pressure 140/72, and respirations 18. HEAD AND NECK: Normal. No JVD. No thyromegaly. CHEST: Clear with good air entry. CARDIAC: First sound and second sound normal. ABDOMEN: Soft and nontender. EXTREMITIES: No edema. NEUROLOGIC: She is nonfocal except she is blind in both eyes. LABORATORY DATA: White count of 6.2, hemoglobin 10.9, hematocrit 34.8, and platelets 163. Chemistry show sodium 136, potassium 6, chloride 94, bicarbonate 26, BUN 66, and creatinine 12. Blood sugar 115. Phosphorus high 5.9 and magnesium 2.2. Total bilirubin 0.9. AST 43, ALT and alkaline phosphatase is normal. IMPRESSION: 1. Possible sepsis. Possible pneumonia. Chest x-ray is negative. The patient is clinically stable. Continue meropenem and doxycycline for now. We will discuss further with Infectious Disease consult, Dr. Burton. The patient's repeat blood cultures x2 came back negative. Chest x-ray seems to be negative. We will continue current therapy. 2. Chronic renal failure, hyperkalemia. The patient is going to hemodialysis. 3. Hypertension. We will hold off on clonidine. We will decrease from her regimen. We will monitor her blood pressure. The patient also advised to hold off her blood pressure medicines only metoprolol, on hemodialysis day. 4. Diabetes, gastroparesis, hypercholesterolemia, peripheral neuropathy. PLAN: Continue current therapy. Continue Lipitor, aspirin, PhosLo, Pepcid, Neurontin, Reglan, Movantik, Zofran and Renagel. We will follow up clinically. Jovon Caicedo MD
--- NOTE | 2017-02-06 01:51 | HP ---
DATE: 02/03/2017 REASON FOR ADMISSION: Hypotension and history of fever. HISTORY OF PRESENT ILLNESS: A 66-year-old dialysis patient, diabetic, has been on dialysis, while she is on dialysis, blood pressure was in the 70s. The patient came to the ER for evaluation and she was given fluids. Blood cultures drawn and the patient admitted for evaluation of her hypotension. She also mentioned that she has been have a little bit of cough. She feels a little bit warm, but no chills. The patient denies any nausea, vomiting, or short of breath. She has a little cold 4 days ago, but otherwise she seems stable. No other complaint. No abdominal pain. No short of breath. No nausea or vomiting. PAST MEDICAL HISTORY: The patient has chronic hemodialysis; diabetes mellitus, on insulin; and hypertension. The patient has blindness, macular degeneration, and diabetes. She also has peripheral neuropathy. She also has hypercholesterolemia and chronic renal failure, on hemodialysis. ALLERGIES: NO KNOWN ALLERGIES. SOCIAL HISTORY: No smoking. No drinking. She lives with her , very supportive. MEDICATIONS AT HOME: She takes clonidine 0.1 mg b.i.d., Norvasc 10 mg, Renvela 800 mg, Protonix 20 p.o. daily, Zofran, Lopressor 25 b.i.d., Reglan, Neurontin, losartan 25 mg p.o. daily, Pepcid 20 p.o. daily, Colace 100 b.i.d.,PhosLo 667 mg p.o. t.i.d., Lipitor 10 mg p.o. at dinner, and aspirin 81 mg p.o. daily. FAMILY HISTORY: Noncontributory. REVIEW OF SYSTEMS: As in the present illness, she is weak, dialysis, peripheral neuropathy, tingling and numbness lower extremity, and need assistance for walking. She does have gastroparesis and nausea. PHYSICAL EXAMINATION: VITAL SIGNS: On that day, 02/03/2017, her vital signs is as follows; temperature is 99.7, heart rate is 58, blood pressure is 103/65, respirations are 19, and saturation is 98%. HEAD AND NECK: Normal. No JVD. No thyromegaly. CHEST: Clear. Good air entry. CARDIAC: First sound and second sound normal. ABDOMEN: Soft and nontender. EXTREMITIES: No edema. NEUROLOGICAL: Seems nonfocal. The patient has blindness in both eyes. LABORATORY DATA: When she came in is as follow: Sodium 142, potassium 4.1, chloride 93, bicarbonate 29, BUN 19, and creatinine 4.8. Blood sugar 142, calcium 10.1, phosphorous 2.5, and magnesium 2. Total bilirubin 0.8, AST slightly elevated at 51, ALT is normal at 40, alkaline phosphatase is 114, and proBNP is 9000. The patient is renal failure patient, total protein is 10.9 and procalcitonin was done with 0.92. CBC; white count 6.6, hemoglobin 13, hematocrit 40, platelets 200, and has normal differential. Blood gas; pH of 7.43, pO2 of 41, pCO2 of 55, this is a venous blood. The patient will also has a PT and PTT within normal range. The patient also has a chest x-ray, which shows vascular congestion; otherwise, no infiltrates. The patient also has a CT scan done, which was negative for any infarctions. She does have extensive mucosal thickening and opacification of the ethmoid air cells and maxillary sinus, possible chronic sinusitis, but no acute intracranial pathology. IMPRESSION AND PLAN: 1. A 66-year-old diabetic female, on hemodialysis, came in with hypotension and which responded well to fluids. Blood pressure is now above 100. Clinically, the patient improved. The mental status improved quickly and the patient seems improving. We will admit the patient for observations and we will get Infectious Disease consultation, Dr. Scott. We also could get back to her Nephrology consult for hemodialysis as well as Cardiology consultation, Dr. Monterroso or Dr. Lynn for further evaluation and treatment. 2. For her diabetes, hypotension and blood pressure medications, we will follow on a regular basis. All other medicine will resume it and we will observe for diabetes. Continue insulin coverage. Continue hemodialysis and we will follow up clinically. Jovon Caicedo MD
--- NOTE | 2017-02-06 19:41 | DS ---
HISTORY OF PRESENT ILLNESS: Patient is comfortable, stable, sitting on a chair, in no distress, no respiratory distress, no cough. Patient wants to go home. Her vitals stable. She is doing very well. PHYSICAL EXAMINATION: VITAL SIGNS: Her vitals are temperature 98.4, blood pressure is 154/66, respirations 19, saturating 97% on room air. HEENT: Head and neck exam normal. NECK: No JVD. No thyromegaly. CHEST: Clear, good air entry. CARDIAC: First sound and second sounds are normal. ABDOMEN: Soft, nontender. EXTREMITIES: No edema. NEUROLOGIC: Normal, except blindness in both eyes. LABORATORY DATA: Last labs here, white count 6.2, no change; hemoglobin 10.9; hematocrit 34.8, platelets 163. Chemistry shows sodium 136, potassium 6, chloride 94, bicarb 26, BUN 66, creatinine 12. Her blood sugar 115. Liver enzymes, no change. Patient also had a chest x-ray, shows congestion. Blood cultures x2 was negative and patient clinically seems better. IMPRESSION AND PLAN: She got meropenem and doxycycline today, day 3. She seems stable and we will discharge the patient home to be followed up in the office. DISCHARGE DIAGNOSES: 1. Possible acute bronchitis, pneumonia. Continue doxycycline for 7 more days. Follow up in the office within 3 to 4 days. 2. Hypertension. No clonidine p.o., hold the blood pressure medication on day of dialysis. Continue Norvasc 10 mg and continue metoprolol 25 mg b.i.d. and losartan 25 mg p.o. daily. 3. Gastroparesis, gastritis. Continue Protonix and Reglan. 4. Chronic constipation. Continue Movantik. 5. Patient does have dementia. She has also hypercholesterolemia. She has peripheral neuropathy. Continue current medicines. 6. Chronic renal failure. Continue hemodialysis and dialysis medications will be continued, including Renagel 800 mg 3 times a day. Continue current therapy. Patient will continue current medications including, right now she should go on Norvasc 10 mg p.o. daily, aspirin 81 mg daily, Lipitor 10 mg p.o. daily, Colace 100 mg b.i.d., doxycycline 100 mg b.i.d. for a week, Pepcid 20 p.o. daily, Neurontin 100 mg t.i.d., losartan 25 mg p.o. daily, Reglan 5 mg a.c. at bedtime, Lopressor 12.5 mg b.i.d., Protonix 20 mg p.o. daily, Renagel 1600 mg t.i.d., and vitamin B complex and Nephro-Marcial one tablet daily. Patient advised to continue all these medications plus follow up in the office within the next 3 to 4 days. I reviewed the meds with the nurse and patient. Jovon Caicedo MD
== END 2017-02-05 13:45 | disposition home or self-care (01) | DRG 871 ==
LOC: ED 13:41 → ERH 21:05 → 2RSO 21:54 → OBSVTOIN 02-03 12:48
PROVIDERS: ADMIT Internal Medicine; ATTEND Internal Medicine
DX: A41.9 Sepsis, unspecified organism (principal); J18.9 Pneumonia, unspecified organism; I13.2 Hypertensive heart and chronic kidney disease with heart failure and with stage 5 chronic kidney disease, or end stage renal disease; E11.22 Type 2 diabetes mellitus with diabetic chronic kidney disease; E87.2 Acidosis; E11.42 Type 2 diabetes mellitus with diabetic polyneuropathy; K31.84 Gastroparesis; E83.39 Other disorders of phosphorus metabolism; I50.9 Heart failure, unspecified; N18.6 End stage renal disease; N25.81 Secondary hyperparathyroidism of renal origin; J44.0 Chronic obstructive pulmonary disease with (acute) lower respiratory infection; Z99.2 Dependence on renal dialysis; E11.43 Type 2 diabetes mellitus with diabetic autonomic (poly)neuropathy; E11.51 Type 2 diabetes mellitus with diabetic peripheral angiopathy without gangrene; H54.8 Legal blindness, as defined in USA; H35.30 Unspecified macular degeneration; E78.00 Pure hypercholesterolemia, unspecified; J44.9 Chronic obstructive pulmonary disease, unspecified; G47.33 Obstructive sleep apnea (adult) (pediatric); D64.9 Anemia, unspecified; B18.2 Chronic viral hepatitis C; E66.9 Obesity, unspecified; E87.5 Hyperkalemia; K59.09 Other constipation; F03.90 Unspecified dementia, unspecified severity, without behavioral disturbance, psychotic disturbance, mood disturbance, and anxiety; E86.0 Dehydration; K29.70 Gastritis, unspecified, without bleeding; Z86.73 Personal history of transient ischemic attack (TIA), and cerebral infarction without residual deficits; Z79.82 Long term (current) use of aspirin; Z79.899 Other long term (current) drug therapy; Z87.891 Personal history of nicotine dependence; Z90.49 Acquired absence of other specified parts of digestive tract

== ENCOUNTER 2017-08-19 00:57 | Emergency (ER) | payer MEDICARE, MEDICAID ==
[2017-08-19 00:58] VITALS: BMI 28.5
--- NOTE | 2017-08-19 01:08 | ED PDOC ---
Arrival/HPI - General Time Seen by Provider: 08/19/17 01:03 Historian: Patient, Spouse, EMS - History of Present Illness Narrative History of Present Illness (Text): 08/19/17 01:07 Joe Harris is a 66 year old female, whose past medical history includes ESRD on hemodialysis (Tuesday, Tuesday, Tuesday), COPD, CHF, diabetes, hypertension, macular degeneration, peripheral neuropathy, hyperlipidemia, and CVA, who presents to the Emergency department brought in by EMS for progressively worsening shortness of breath tonight. Patient states she was last dialyzed on 08/17/17 and scheduled for dialysis later today. Patient denies any fever, chills, abdominal pain, nausea, vomiting, back pain, headache , dizziness, or any other complaints. PMD: Dr. Caicedo Nephrology: Dr. Vargas Symptom Onset: Gradual Symptom Course: Worsening Activities at Onset: Light Context: Home Past Medical History - Provider Review Nursing Documentation Reviewed: Yes - Infectious Disease Hx of Infectious Diseases: None - Tetanus Immunization Tetanus Immunization: Unknown - Cardiac Hx Cardiac Disorders: Yes Hx Congestive Heart Failure: Yes Hx Hypertension: Yes Hx Pacemaker: No Hx Peripheral Edema: Yes Hx Peripheral Vascular Disease: Yes Other/Comment: b/l leg angiogram - Pulmonary Hx Respiratory Disorders: Yes Hx Chronic Obstructive Pulmonary Disease (COPD): Yes Hx Sleep Apnea: Yes Other/Comment: bipap at night - Neurological Hx Neurological Disorder: Yes (neuropathy) HX Cerebrovascular Accident: Yes Hx Dementia: Yes Other/Comment: no feeling in lle, left arm weakness, legally blind both eyes post cva 6 yrs ago - HEENT Hx HEENT Disorder: Yes Hx Blind: Yes (legally blind) - Renal Hx Renal Disorder: Yes Hx Dialysis: Yes ([facility]) Hx Renal Failure: Yes Other/Comment: left arm AV shunt - Endocrine/Metabolic Hx Endocrine Disorders: Yes Hx Diabetes Mellitus Type 1: Yes Hx Diabetes Mellitus Type 2: Yes - Hematological/Oncological Hx Blood Disorders: No - Integumentary Hx Dermatological Disorder: No - Musculoskeletal/Rheumatological Hx Musculoskeletal Disorders: No Hx Back Pain: Yes (fell in shop [id number]) Hx Falls: Yes Hx Unsteady Gait: Yes (walker) - Gastrointestinal Hx Gastrointestinal Disorders: Yes (CONSTIPATION, obese) Hx Gall Bladder Disease: Yes - Genitourinary/Gynecological Hx Genitourinary Disorders: Yes (ANURIA) - Psychiatric Hx Psychophysiologic Disorder: (SMOKE H/O) Hx Anxiety: No Hx Bipolar Disorder: No Hx Depression: No Hx Emotional Abuse: No Hx Hallucinations: No Hx Panic Disorder: No Hx Post Traumatic Stress Disorder: No Hx Psychosis: No Hx Physical Abuse: No Hx Schizophrenia: No Hx Sexual Abuse: No Hx Substance Use: No - Surgical History Hx Amputation: Yes (right pinky toe) Hx Cardiac Catheterization: Yes Hx Cholecystectomy: Yes Other/Comment: c section, r eye corneal sx - Anesthesia Hx Anesthesia: Yes Hx Anesthesia Reactions: No Hx Malignant Hyperthermia: No - Suicidal Assessment Feels Threatened In Home Enviroment: No Family/Social History - Physician Review Nursing Documentation Reviewed: Yes Family/Social History: Unknown Family HX Smoking Status: Former Smoker Hx Alcohol Use: No Hx Substance Use: No Hx Substance Use Treatment: No Allergies/Home Meds Allergies/Adverse Reactions: Allergies No Known Allergies Allergy (Verified 05/04/16 19:41) Home Medications: Home Meds Medication Instructions Recorded Confirmed Aspirin [Ecotrin] 81 mg PO DAILY 09/02/15 02/02/17 Atorvastatin [Lipitor] 10 mg PO DIN 09/02/15 02/02/17 Calcium Acetate [Phoslo] 667 mg PO TID 09/02/15 02/02/17 Famotidine [Pepcid] 20 mg PO DAILY 09/02/15 02/02/17 Gabapentin [Neurontin] 100 mg PO TID 09/02/15 02/02/17 Losartan Potassium 25 mg PO DAILY 09/02/15 02/02/17 Metoprolol Tartrate [Lopressor] 25 mg PO BID 09/02/15 02/02/17 Sevelamer [Renagel] 800 mg PO TID 09/02/15 02/02/17 cloNIDine [Catapres] 0.1 mg PO BID 09/02/15 02/02/17 Docusate Sodium [Bueno' 100 mg PO BID 05/04/16 02/02/17 Laxative] amLODIPine [Norvasc] 10 mg PO DAILY 05/04/16 02/02/17 Review of Systems - Physician Review All systems were reviewed & negative as marked: Yes - Review of Systems Constitutional: Normal. absent: Fevers Eyes: Normal ENT: Normal Respiratory: SOB Cardiovascular: Normal. absent: Chest Pain Gastrointestinal: Normal. absent: Abdominal Pain, Diarrhea, Nausea, Vomiting Genitourinary Female: Normal. absent: Dysuria, Frequency, Hematuria, Urine Output Changes Musculoskeletal: Normal. absent: Back Pain, Neck Pain Skin: Normal. absent: Rash Neurological: Normal. absent: Headache, Dizziness Endocrine: Normal Hemo/Lymphatic: Normal Psychiatric: Normal Physical Exam Vital Signs Reviewed: Yes Vital Signs Temp Pulse Resp BP Pulse Ox 08/19/17 01:15 98.4 F 78 18 193/83 H 100 Temperature: Afebrile Blood Pressure: Hypertensive Pulse: Regular Appearance: Positive for: Non-Toxic Mental Status: Positive for: Alert and Oriented X 3 - Systems Exam Head: Present: Atraumatic, Normocephalic Pupils: Present: PERRL Extroacular Muscles: Present: EOMI Conjunctiva: Present: Normal Mouth: Present: Moist Mucous Membranes Neck: Present: Normal Range of Motion Respiratory/Chest: Present: Rales (Rales at bases). No: Respiratory Distress, Accessory Muscle Use Cardiovascular: Present: Regular Rate and Rhythm, Normal S1, S2. No: Murmurs Abdomen: No: Tenderness, Distention, Peritoneal Signs Back: Present: Normal Inspection Upper Extremity: Present: Normal Inspection. No: Cyanosis, Edema Lower Extremity: Present: Normal Inspection. No: Edema Neurological: Present: GCS=15, CN II-XII Intact, Speech Normal Skin: Present: Warm, Dry, Normal Color. No: Rashes Psychiatric: Present: Alert, Oriented x 3, Normal Insight, Normal Concentration Medical Decision Making ED Course and Treatment: 08/19/17 01:08 Impression: 66 year old female complaining of progressively worsening shortness of breath tonight. Plan: -- EKG -- Chest X-ray -- Labs, cardiac enzymes, BNP -- Reassess and disposition Prior Visits: Notes and results from previous visits were reviewed. Progress Notes: 08/19/17 01:[address] Caicedo, made aware of plan. 08/19/17 01:[address] Sepulveda, covering for pt's loom changeover operator Dr. Vargas, who is aware and agrees with plan. Reviewed EKG, NSR at [address]. Non-specific ST/T wave changes. 08/19/17 02:03 Chest X-ray reviewed, shows no acute processes. 08/19/17 02:[address] Andujar [facility] ER attending, who is aware and agrees with plan. Accepts pt on transfer. [facility]. 08/19/17 02:[address] Barber, [facility] Hospitalist personnel psychologist, who is aware and agrees with plan. Accepts pt on transfer to [facility]. Based upon the information available at the time of transfer, the medical benefits reasonably expected from the provision of medical treatment at [facility] outweigh the increased risk to the patient for transfer from this facility. I have described the inherent risks and benefits of the transfer to the patient, and patient agrees to transfer. I have spoken to Dr. Barber, [facility] Hospitalist personnel psychologist , and Dr. Andujar, [facility] ER attending, who has agreed to accept transfer of the patient and provide further medical treatment at the receiving facility. At the time of transfer, copies of all medical records sent which related to the emergency condition for which the individual presented. These records include observations of signs or symptoms, preliminary clinical impression, treatment provided, results of any completed test and an informed written consent to the transfer. - Critical Care Critical Care Minutes: 30 minutes - Lab Interpretations Lab Results: 08/19/17 03:10 08/19/17 03:10 Lab Results 08/19/17 03:10: WBC 8.8 D, RBC 3.74, Hgb 9.9 L, Hct 32.6 L, MCV 87.2, MCH 26.5 , MCHC 30.4 L, RDW 14.4, Plt Count 187, MPV 10.8 08/19/17 03:10: Sodium 138, Potassium 7.6 H* D, Chloride 96 L, Carbon Dioxide 31 , Anion Gap 18, BUN 31 H, Creatinine 8.5 H* D, Est GFR ( Amer) 6, Est GFR (Non-Af Amer) 5, Random Glucose 187 H, Calcium 9.8, Total Bilirubin 0.4, AST 33, ALT 32, Alkaline Phosphatase 74, Lactate Dehydrogenase 596, Total Creatine Kinase 183, Troponin I 0.06 D, NT-Pro-B Natriuret Pep 18794 H, Total Protein 8.2, Albumin 4.2, Globulin 4.0, Albumin/Globulin Ratio 1.0 L 08/19/17 03:10: PT 11.8, INR 1.03, APTT 31.9 - RAD Interpretation Radiology Orders: 08/19/17 01:09 CHEST PORTABLE [RAD] Stat 08/19/17 05:30 CHEST PORTABLE [RAD] Stat Residential Recycle Driver: ED Physician - EKG Interpretation Interpreted by ED Physician: Yes Type: 12 lead EKG - Medication Orders Current Medication Orders: Discontinued Medications Albuterol Sulfate (Albuterol 0.5% Inhal Susie (5 Mg/ Ml) 20 Ml) 15 mg IH ONCE STA Stop: 08/19/17 03:55 Last Admin: 08/19/17 04:50 Dose: 15 ml Albuterol/Ipratropium (Duoneb 3 Mg/0.5 Mg (3 Ml) Ud) 3 ml IH ONCE STA Stop: 08/19/17 03:03 Last Admin: 08/19/17 03:15 Dose: 3 ml Albuterol/Ipratropium (Duoneb 3 Mg/0.5 Mg (3 Ml) Ud) 3 ml IH ONCE STA Stop: 08/19/17 03:05 Last Admin: 08/19/17 04:15 Dose: 3 ml Calcium Gluconate (Calcium Gluconate Iv) 1,000 mg IVP ONCE ONE Stop: 08/19/17 03:58 Dextrose (Dextrose 50% Inj) 50 ml IVP ONCE ONE Stop: 08/19/17 03:55 Insulin Human Regular (Humulin R) 10 units IVP STAT STA Stop: 08/19/17 03:55 Morphine Sulfate (Morphine) 2 mg IM STAT STA Stop: 08/19/17 05:03 Last Admin: 08/19/17 05:11 Dose: 2 mg MAR Pain Assessment Document 08/19/17 05:11 ALDO (Rec: 08/19/17 05:11 ALDO [id number]) Pain Reassessment Is this a pain reassessment? No IM Administration Charges Document 08/19/17 05:11 ALDO (Rec: 08/19/17 05:11 ALDO [id number]) Injection Site MAR Injection Site Right Deltoid Charges for Administration # of IM Administrations 1 Sodium Bicarbonate (Sodium Bicarbonate 8.4% (50 Meq) Syringe) 50 meq IVP ONCE ONE Stop: 08/19/17 03:55 Sodium Polystyrene Sulfonate (Kayexalate Susp) 30 gm PO ONCE ONE Stop: 08/19/17 04:35 - Scribe Statement The provider has reviewed the documentation as recorded by the Katheryn Costello Provider Scribe Attestation: All medical record entries made by the Scribe were at my direction and personally dictated by me. I have reviewed the chart and agree that the record accurately reflects my personal performance of the history, physical exam, medical decision making, and the department course for this patient. I have also personally directed, reviewed, and agree with the discharge instructions and disposition. Disposition/Present on Arrival - Present on Arrival Any Indicators Present on Arrival: No History of DVT/PE: No History of Uncontrolled Diabetes: No Urinary Catheter: No History Surgical Site Infection Following: None - Disposition Have Diagnosis and Disposition been Completed?: Yes Diagnosis: Hyperkalemia, CHF (congestive heart failure), ESRD (end stage renal disease) Disposition: Transfer [facility] Disposition Time: 05:41 Condition: STABLE Discharge Instructions (ExitCare): Heart Failure (ED)
[2017-08-19 01:19] VITALS: RESP 18
[2017-08-19] MEDS ORDERED: Albuterol-Ipratrop 3 mg / 0.5 (3 ml) UD IH STA ×2 (03:02→03:04)
[2017-08-19 03:29] LABS: HEMOGLOBIN 9.9 g/dL (12.0-16.0); MEAN CELL VOLUME 87.2 fl (80.0-105.0); MEAN CORPUSCULAR HEMOGLOBIN 26.5 pg (25.0-35.0); MEAN CORPUSCULAR HGB CONC 30.4 g/dl (31.0-37.0); MEAN PLATELET VOLUME 10.8 fl (7.0-11.0); RBC 3.74 10^6/uL (3.5-6.1); RED CELL DISTRIBUTION WIDTH 14.4 % (11.5-14.5); WHITE BLOOD COUNT 8.8 10^3/ul (4.5-11.0)
[2017-08-19 03:34] LABS: INR 1.03 (0.93-1.08); PARTIAL THROMBOPLASTIN TIME 31.9 Seconds (25.1-36.5); PROTHROMBIN TIME 11.8 SECONDS (9.4-12.5)
[2017-08-19 03:43] LABS: TROPONIN I 0.06 ng/mL
[2017-08-19 03:48] LABS: ALBUMIN 4.2 g/dL (3.0-4.8); CALCIUM 9.8 mg/dL (8.4-10.5)
[2017-08-19] MEDS ORDERED: Insulin Regular 1 UNITS/0.01 ML ML IVP STA (03:54)
[2017-08-19] MEDS ORDERED: Dextrose 50% SYRINGE Inj (50 ml) IVP ONE (03:54)
[2017-08-19] MEDS ORDERED: Albuterol 0.5% Inhal Sol (5 mg/ ml) 20 ml IH STA (03:54)
[2017-08-19] MEDS ORDERED: Sodium Bicarbonate (8.4%) 50 Meq Syringe IVP ONE (03:54)
[2017-08-19] MEDS ORDERED: Sod Polystyrene Sulf 15 gm/60 ml Susp PO ONE (04:34)
[2017-08-19] MEDS ORDERED: Oxycodone/Acetaminophen 5/325 mg Tab PO STA (04:59)
[2017-08-19] MEDS ORDERED: Morphine 2 mg/ml ISec IM STA (05:02)
[2017-08-19] MEDS ORDERED: Oxycodone/Acetaminophen 5/325 mg Tab ONE (05:02)
--- NOTE | 2017-08-19 05:55 | PCM.PROC ---
<Naomi Pierce - Last Filed: 08/19/17 05:52> Procedures Attestation:: I certify that I have explained the specified Operation(s) or Procedure(s), risks, benefits and reasonable alternatives to the Patient and/or other person responsible. The opportunity was given to ask questions and all questions answered - Central Line Placement Right Internal Jugular Triple Lumen Catheter Aseptic technique was employed throughout the procedure: Hand Hygiene done prior to procedure, Full sterile barriers (mask, hair cover, sterile gown, sterile gloves), Full body sterile drape, Chloraprep Antiseptic: 30 second prep for IJ or SC sites CVP Time Out Performed: Yes Pt. Placed on Pulse Ox Monitor: Yes Central Line Prep: Chlorhexidine-Alcohol Combination Local Anesthesia Used: Lidocaine 1% Amount of Anesthesia Used (mls): 5 Ultrasound Used for Placement: Yes Central Line Lumen Inserted: triple Post Procedure: Sutured in Place, Good Blood Return, All Ports Aspirated, Flushed, Capped, Sterile Dressing Applied Secured by: Securement device Post procedure dressing: Clear vapor permeable, Chlorhexidine disc (Biopatch) Post Procedure X-Ray: Yes Patient Tolerated Procedure: Well, No Complications Immediate Complications: None <Klayn SANTIAGO,Olegario - Last Filed: 08/19/17 11:10> Additional Comments - Additional Comments Additional Comments: -I supervised the resident throughout the procedure and there were no complications. -Post procedure CXR confirms accurate placement -Of note, only reason patient received TLC was because PIV access was unattainable (Due to hard stick) and pt's required IV calcium gluconate and IV Insulin to help temporarily reduce her markedly elevated serum potassium of 7.8. -She will now be transferred to [facility] for urgent HD.
[2017-08-19 07:01] VITALS: O2SAT 99
[2017-08-19 07:59] VITALS: BP 172/88; PULSE 84; TEMP 100.9
--- NOTE | 2017-08-19 09:33 | RAD ---
HISTORY: sob COMPARISON: 02/02/2017 FINDINGS: LUNGS: There is an infiltrate in the right lower lobe. Bilateral perihilar infiltrates. Probable CHF PLEURA: No significant pleural effusion identified, no pneumothorax apparent. CARDIOVASCULAR: Normal. OSSEOUS STRUCTURES: No significant abnormalities. VISUALIZED UPPER ABDOMEN: Normal. OTHER FINDINGS: None. IMPRESSION: There is an infiltrate in the right lower lobe. Bilateral perihilar infiltrates. Probable CHF
--- NOTE | 2017-08-19 09:42 | RAD ---
HISTORY: verify central line placement COMPARISON: Earlier same day FINDINGS: LUNGS: There is right internal jugular line terminating in the upper right atrium. There is no pneumothorax. There is improvement in the bilateral infiltrates PLEURA: No significant pleural effusion identified, no pneumothorax apparent. CARDIOVASCULAR: Normal. OSSEOUS STRUCTURES: No significant abnormalities. VISUALIZED UPPER ABDOMEN: Normal. OTHER FINDINGS: None. IMPRESSION: There is right internal jugular line terminating in the upper right atrium. There is no pneumothorax
--- NOTE | 2017-08-19 21:35 | CARD ---
APPROVED REPORT EKG Measurement Heart [id number] ID [id number] <Conclusion> Normal sinus rhythm Left axis deviation Abnormal ECG
== END 2017-08-19 06:45 | disposition short-term general hospital (02) ==
LOC: ED 00:57
DX: I13.2 Hypertensive heart and chronic kidney disease with heart failure and with stage 5 chronic kidney disease, or end stage renal disease (principal); E11.22 Type 2 diabetes mellitus with diabetic chronic kidney disease; N18.6 End stage renal disease; I50.9 Heart failure, unspecified; Z99.2 Dependence on renal dialysis; Z87.891 Personal history of nicotine dependence; E87.5 Hyperkalemia; E78.5 Hyperlipidemia, unspecified; Z86.73 Personal history of transient ischemic attack (TIA), and cerebral infarction without residual deficits
CPT/HCPCS: 71045; 80053; 82550; 83615; 83880; 84484; 85027; 85610; 85730; 87449; 87804; 93005; 94640; 96372; 96374; 96375; 99283; J0610; J2270

== ENCOUNTER 2018-06-03 00:50 | Emergency (ER) | payer MEDICARE, MEDICAID ==
[2018-06-03 00:50] VITALS: BMI 28.5
--- NOTE | 2018-06-03 01:15 | ED PDOC ---
Arrival/HPI - General Time Seen by Provider: 06/03/18 01:05 Historian: EMS - History of Present Illness Narrative History of Present Illness (Text): 06/03/18 00:50 Joe Harris is a 67 year old female, whose past medical history includes ESRD on hemodialysis (Tuesday, Tuesday, Tuesday), left arm AV shunt, COPD, CHF, diabetes, hypertension, macular degeneration, peripheral neuropathy, hyperlipidemia, CVA, and pacemaker, who presents to the ED brought in by EMS for cardiac arrest. As per EMS, patient began bleeding from her left arm AV shunt this evening prior to taking a bath and family notified EMS after patient continued to bleed while at home. On arrival to scene, EMS noted patient to be unresponsive, in cardiac arrest. ACLS protocol was initiated by EMS, patient was intubated in the field, and had an IO placed in the right humerus and left tibia. Tourniquet was placed on left upper arm. Patient received 4 Epis and 1g of Tranexamic acid without any ROSC. As per EMS, family stated patient was last fully dialyzed yesterday. On arrival to ED, patient is asystole, pulseless. Limited HPI and ROS secondary to cardiac arrest. PMD: Dr. Caicedo Time/Duration: Prior to Arrival Symptom Onset: Sudden Symptom Course: Unchanged Severity Level: Severe Activities at Onset: Rest Context: Home Past Medical History - Provider Review Nursing Documentation Reviewed: Yes - Infectious Disease Hx of Infectious Diseases: None - Tetanus Immunization Tetanus Immunization: Unknown - Cardiac Hx Congestive Heart Failure: Yes Hx Hypertension: Yes Hx Peripheral Edema: Yes - Pulmonary Hx Chronic Obstructive Pulmonary Disease (COPD): Yes Hx Sleep Apnea: Yes - Neurological Hx Dementia: Yes - HEENT Hx HEENT Disorder: Yes Hx Blind: Yes (legally blind) - Renal Hx Renal Disorder: Yes - Endocrine/Metabolic Hx Endocrine Disorders: Yes Hx Diabetes Mellitus Type 1: Yes Hx Diabetes Mellitus Type 2: Yes - Hematological/Oncological Hx Blood Disorders: No - Integumentary Hx Dermatological Disorder: No - Musculoskeletal/Rheumatological Hx Musculoskeletal Disorders: No Hx Back Pain: Yes (fell in [employer] [facility] 2012) Hx Falls: Yes Hx Unsteady Gait: Yes (walker) - Gastrointestinal Hx Gall Bladder Disease: Yes - Genitourinary/Gynecological Hx Genitourinary Disorders: Yes (ANURIA) - Psychiatric Hx Substance Use: No - Surgical History Hx Cholecystectomy: Yes - Anesthesia Hx Anesthesia: Yes Hx Anesthesia Reactions: No Hx Malignant Hyperthermia: No - Suicidal Assessment Feels Threatened In Home Enviroment: No Family/Social History - Physician Review Nursing Documentation Reviewed: Yes Family/Social History: Unknown Family HX Smoking Status: Former Smoker Hx Alcohol Use: No Hx Substance Use: No Hx Substance Use Treatment: No Allergies/Home Meds Allergies/Adverse Reactions: Allergies No Known Allergies Allergy (Verified 05/14/18 07:11) Home Medications: Home Meds Medication Instructions Recorded Confirmed Losartan Potassium 25 mg PO DAILY 09/02/15 08/19/17 Docusate Sodium [Bueno' 100 mg PO BID 05/04/16 08/19/17 Laxative] Review of Systems - Review of Systems Systems not reviewed;Unavailable: Unstable Vital Signs (Cardiac arrest) Physical Exam Vital Signs Reviewed: Yes Pulse: Pulseless Respiratory Rate: Mechanically Ventilated (Intubated) Appearance: Positive for: Ill-Appearing Mental Status: Positive for: Comatose - Systems Exam Head: Present: Atraumatic, Normocephalic Pupils: Present: Other (left pupil fixed dilated/right pupil opacified) Mouth: Present: Other (ET tube in place) Pharnyx: Present: Normal Respiratory/Chest: Present: Other (clear breath sounds) Cardiovascular: Present: Other (no rate or rhythm) Upper Extremity: Present: Other (left arm shunt/IO right humeral ) Lower Extremity: Present: Normal Inspection, Other (IO in place right leg) Neurological: Present: Other (no response to painful stimuli) Medical Decision Making ED Course and Treatment: 06/03/18 00:50 Impression: 67 year old female brought in for cardiac arrest, CPR in progress. Prior Visits: Notes and results from previous visits were reviewed. Progress Notes: Tourniquet placed on left arm to control bleeding by medics. Pt intubated in the field, right humeral/left tibia IO placed by EMS, Epi and TXA given with no ROSC. On arrival to ED, pt in asystole, pulseless. ACLS protocol/CPR continued, pt placed on continuous telemetry monitoring. Respiratory therapist at bedside. Pt remained in asystole/pulseless after multiple rounds of unsuccessful chemical resuscitative efforts. Time of called at 01:04. Transaction Coordinator notified of case. PMD paged. Family present in ED, discussed all resuscitative efforts with family, who verbalize understanding. 06/03/18 02:[address] Caicedo, made aware pt . - Scribe Statement The provider has reviewed the documentation as recorded by the Scribe Sofia Costello All medical record entries made by the Scribe were at my direction and personally dictated by me. I have reviewed the chart and agree that the record accurately reflects my personal performance of the history, physical exam, medical decision making, and the department course for this patient. I have also personally directed, reviewed, and agree with the discharge instructions and disposition. Disposition/Present on Arrival - Present on Arrival Any Indicators Present on Arrival: No History of DVT/PE: No History of Uncontrolled Diabetes: No Urinary Catheter: No History Surgical Site Infection Following: None - Disposition Have Diagnosis and Disposition been Completed?: Yes Diagnosis: Cardiac arrest Disposition: WITH WITHOUT AUTOPSY Disposition Time: 01:04 Condition:
[2018-06-03 02:11] VITALS: PULSE 0
== END 2018-06-03 03:36 ==
LOC: ED 00:50
DX: I46.9 Cardiac arrest, cause unspecified (principal); I13.2 Hypertensive heart and chronic kidney disease with heart failure and with stage 5 chronic kidney disease, or end stage renal disease; I50.9 Heart failure, unspecified; N18.6 End stage renal disease; E11.22 Type 2 diabetes mellitus with diabetic chronic kidney disease; J44.9 Chronic obstructive pulmonary disease, unspecified; F03.90 Unspecified dementia, unspecified severity, without behavioral disturbance, psychotic disturbance, mood disturbance, and anxiety; H35.30 Unspecified macular degeneration; Z86.73 Personal history of transient ischemic attack (TIA), and cerebral infarction without residual deficits; Z95.0 Presence of cardiac pacemaker; Z99.2 Dependence on renal dialysis; Z87.891 Personal history of nicotine dependence